=== PATIENT | female | born 2000 | race Two or more races ===

== ENCOUNTER 2018-06-02 22:22 | Emergency (ER) | payer OTHER ==
--- NOTE | 2018-06-03 01:32 | ED ---
Headache - HPI Summary HPI Summary: This pt is a 18 y/o female presenting [place] [facility]/o frontal headache since . Pt reports she began feeling nauseous along with a headache around noon today while in class. She states her classroom did not have AC. Pt went home to take a nap but after she woke up her headache persisted and was worse. She additionally notes she was sweating when she woke up. Denies fever, chills, sore throat, ear pain, cough, vomiting, abd pain, chest pain. Denies any PMHx. - History Of Current Complaint Chief Complaint: EDHeadache Stated Complaint: HEADACHE Time Seen by Provider: 06/03/18 01:18 Hx Obtained From: Patient Onset/Duration: Started hours ago, Still Present Timing: Hours Location of Headache: Frontal Aggravating Factor: Nothing Allevating Factors: Nothing Associated Signs And Symptoms: Nausea, Other (Noted In Comments) - diaphoresis - Allergies/Home Medications Allergies/Adverse Reactions: Allergies Allergy/AdvReac Type Severity Reaction Status Date / Time No Known Allergies Allergy Verified 06/02/18 22:41 PMH/Surg Hx/FS Hx/Imm Hx Endocrine/Hematology History: Denies: Hx Diabetes Cardiovascular History: Denies: Hx Hypertension Infectious Disease History: No Infectious Disease History: Denies: Traveled Outside the [place] in Last 30 Days - Family History Known Family History: Negative: Cardiac Disease, Hypertension, Diabetes - Social History Alcohol Use: None Substance Use Type: Reports: None Smoking Status (MU): Never Smoked Tobacco Review of Systems Positive: Skin Diaphoresis. Negative: Fever, Chills Negative: Sore Throat, Ear Ache Negative: Chest Pain Negative: Cough Positive: Nausea. Negative: Abdominal Pain, Vomiting Musculoskeletal: Negative Skin: Negative Positive: Headache All Other Systems Reviewed And Are Negative: Yes Physical Exam - Summary Physical Exam Summary: VITAL SIGNS: Reviewed. GENERAL: Patient is a well-developed and nourished female who is lying comfortable in the stretcher. Patient is not in any acute respiratory distress. HEAD AND FACE: No signs of trauma. No ecchymosis, hematomas or skull depressions. No sinus tenderness. EYES: PERRLA, EOMI x 2, No injected conjunctiva, no nystagmus. EARS: Hearing grossly intact. Ear canals and tympanic membranes are within normal limits. MOUTH: Oropharynx within normal limits. NECK: Supple, trachea is midline, no adenopathy, no JVD, no carotid bruit, no c- spine tenderness, neck with full ROM. CHEST: Symmetric, no tenderness at palpation LUNGS: Clear to auscultation bilaterally. No wheezing or crackles. CVS: Regular rate and rhythm, S1 and S2 present, no murmurs or gallops appreciated. ABDOMEN: Soft, non-tender. No signs of distention. No rebound no guarding, and no masses palpated. Bowel sounds are normal. EXTREMITIES: FROM in all major joints, no edema, no cyanosis or clubbing. NEURO: Alert and oriented x 3. No acute neurological deficits. Speech is normal and follows commands. SKIN: Dry and warm Triage Information Reviewed: Yes Vital Signs On Initial Exam: Initial Vitals Temp Pulse Resp BP Pulse Ox 99.3 F 102 16 86/51 98 06/02/18 22:35 06/02/18 22:35 06/02/18 22:35 06/02/18 22:35 06/02/18 22:35 Vital Signs Reviewed: Yes Diagnostics - Vital Signs Vital Signs Temp Pulse Resp BP Pulse Ox 06/03/18 00:30 100 F 93 20 87/52 98 06/02/18 22:35 99.3 F 102 16 86/51 98 - Laboratory Result Diagrams: 06/03/18 01:44 06/03/18 01:44 Lab Statement: Any lab studies that have been ordered have been reviewed, and results considered in the medical decision making process. Headache Course/Dx - Course Assessment/Plan: Pt is a 18 y/o female, with no PMHx, who presents to the ED with frontal headache since 06/02/18. Pt reports she began feeling nauseous along with a headache around noon today while in class. She states her classroom did not have AC. Pt went home to take a nap but after she woke up her headache persisted and was worse. She additionally notes she was sweating when she woke up. Test results without any significant abnormalities. In the ED course the pt was given IV fluids, Reglan, Toradol, Benadryl. Pt reports feeling better after these medications. She will be discharged home with follow up from her PCP. Pt is advised to return to the ED for any worsening symptoms. - Diagnoses Provider Diagnoses: Headache Discharge - Sign-Out/Discharge Documenting (check all that apply): Patient Departure - Discharge - Discharge Plan Condition: Stable Disposition: HOME Patient Education Materials: Acute Headache (ED) Referrals: [facility] GRAFF [Primary Care Provider] - Additional Instructions: Please follow up with your primary care provider in 1-2 days. RETURN TO EMERGENCY DEPARTMENT FOR ANY NEW OR WORSENING SYMPTOMS. - Attestation Statements Document Initiated by Scribe: Yes Documenting Scribe: Keiko Ledezma Provider For Whom Scribe is Documenting (Include Credential): Dr. Doroteo Vee MD Scribe Attestation: Keiko Lopez, scribed for Dr. Doroteo Vee MD on 06/03/18 at 0306.
[2018-06-03] MEDS ORDERED: NS 0.9% 1000 ML* 1,000 ML IV ONE (01:38)
[2018-06-03] MEDS ORDERED: Ketorolac INJ* 30 MG/ML 1 ML VIAL IV ONE (01:38)
[2018-06-03] MEDS ORDERED: Metoclopramide IV* 5 MG/ML 2 ML VIAL IV ONE (01:38)
[2018-06-03] MEDS ORDERED: diPHENhydraMINE IV* 50 MG/ML 1 ml VIAL (BENADRYL) IV ONE (01:40)
[2018-06-03 01:58] LABS: ABS Basophils 0 10^3/ul (0-0.2); ABS Eosinophils 0 10^3/ul (0-0.6); ABS Lymphocytes 0.4 10^3/ul (1.0-4.8); ABS Monocytes 0.3 10^3/ul (0-0.8); ABS Nucleated RBC 0 10^3/ul; Eosinophil % 0.1 % (0-6); Hematocrit 37 % (35-47); Hemoglobin 12.6 g/dl (12.0-16.0); Lymphocyte % 7.5 % (25-47); Mean Corpuscular HGB Conc 34 g/dl (31-36); Mean Corpuscular Hemoglobin 30 pg (27-31); Mean Corpuscular Volume 90 fL (80-97); Mean Platelet Volume 7.9 um3 (7.4-10.4); Nucleated Red Blood Cells % 0; Platelet Count 186 10^3/ul (150-450); Red Blood Count 4.16 10^6/ul (4.00-5.40); Red Cell Distribution Width 13 % (10.5-15); White Blood Count 5.7 10^3/ul (3.5-10.8)
[2018-06-03 02:15] LABS: EGFR Non-African American 95.6 (>60)
[2018-06-03 03:05] VITALS: BP 116/71
== END 2018-06-03 03:07 | disposition home or self-care (01) ==
LOC: ED 22:22
DX: R51 Headache (principal)
CPT/HCPCS: 36415; 80053; 84702; 85025; 86308; 96374; 96375; 99282; J1200; J1885; J2765